=== PATIENT | male | born 1980 | race Caucasian/White ===

== ENCOUNTER 2020-02-19 09:44 | Emergency (ER) | payer OTHER, SELFPAY ==
--- NOTE | 2020-02-19 09:50 | XR_ITS ---
EXAMINATION: XR SHOULDER, RIGHT CLINICAL INFORMATION: Fall. COMPARISON: None TECHNIQUE: AP external rotation, Grashey, scapular Y, and axillary views of the right shoulder. FINDINGS: The bones and soft tissues are normal. No fracture. Glenohumeral and acromioclavicular alignment is anatomic with normal joint space. No abnormal soft tissue calcifications. XR/XR shoulder RT min 2V IMPRESSION: Normal right shoulder.
[2020-02-19 10:41] VITALS: BP 163/95; PULSE 98; RESP 16; TEMP 37.1; O2SAT 98; BMI 31.7
--- NOTE | 2020-02-19 10:55 | CT_ITS ---
EXAMINATION: CT HEAD CT CERVICAL SPINE WITHOUT CONTRAST. CLINICAL INFORMATION: Status post fall with head strike. COMPARISON: None TECHNIQUE: 5 mm thin axial and reformatted 2 mm thin sagittal and coronal images of brain were obtained without contrast. 3 mm thin axial and reformatted 2 mm thin sagittal and coronal images of cervical spine were obtained without contrast. DLP [id number]. FINDINGS: Brain: There is no acute intra-axial, extra-axial bleed, masses or midline shift. There is no acute infarct in evolution. Aguirre to white matter differentiation is maintained. The lateral ventricles are symmetrical in size and configuration without enlargement. The bone windows reveal no calvarial abnormality. Bilateral paranasal sinuses and mastoid air cells are well-aerated. No scalp soft tissue abnormality seen. Cervical spine: There is mild reversal of cervical lordosis. The vertebral heights and alignment is normal. The craniovertebral junction and C1-C2 alignment is normal. No visible acute fracture, dislocation or subluxation. There is mild degenerative spondylosis with loss of disc height at C4-C5 disc level. 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 The prevertebral and paravertebral soft tissues are normal. The lung apices are clear. The thyroid lobes are symmetrical and normal. There are bilateral small shotty neck lymph nodes slightly greater on the right. The largest right neck lymph node measures 1.2 x 1.[address] cm on coronal image CT/CT cervical spine wo con IMPRESSION: No acute intracranial process seen. Age-related cerebral volume loss with chronic small vessel ischemic changes. 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 There are degenerative disc changes at C4-C5 disc level. Bilateral shotty neck lymphadenopathy slightly greater on the right. The largest right neck lymph node measures 1.2 x 1.1 cm.
[2020-02-19 10:57] VITALS: BP 146/102; PULSE 77
--- NOTE | 2020-02-19 11:06 | ED.EXTPRO ---
HPI - Extremity Problem General Chief complaint: Extremity Injury, Upper Stated complaint: fell hit shoulder Time Seen by Provider: 02/19/20 09:48 Source: patient Mode of arrival: ambulatory Limitations: no limitations History of Present Illness HPI Narrative: 39 y/o male with history of polysubstance abuse presenting with right shoulder, neck and head pain after he fell this morning. He states he used cocaine, marijuana and drank alcohol last night. When he got out of bed this morning he was dizzy and he fell against the door in his room. He hit his head but did not lose consciousness. He is not on anticoagulation. He reports not feeling good this morning. No abd pain, N/V. Reports headache on the right side where he hit his head. MD Complaint: extremity pain and joint paint Onset (ago): hour(s) (3) Pain Consistency: constant Location: right and upper extremity Severity scale (1-10): 8 Quality: aching and sharp Radiation: proximal Relieving factors: nothing Exacerbating factors: range of motion and palpation Associated symptoms: other (dizziness) Related Data Previous Rx's Medication Instructions Recorded ibuprofen 600 mg PO Q8H PRN #15 tab 02/19/20 lidocaine [Lidoderm] 1 patch TOPICAL DAILY #15 ea 02/19/20 Allergies Allergy/AdvReac Type Severity Reaction Status Date / Time No Known Allergies Allergy Verified 02/19/20 10:41 Review of Systems Review of Systems: Constitutional: No Fever, No Chills ENT/Mouth: No sore throat, No Rhinorrhea, No Swallowing Difficulty Eyes: No Eye Pain, No Swelling, No Redness Cardiovascular: No Chest Pain, No SOB Respiratory: No Cough, No Sputum, No Wheezing, No dyspnea Gastrointestinal: No Nausea, No Vomiting, No Diarrhea, No abdominal Pain Genitourinary: No Dysuria, No Urinary Frequency, No Hematuria Musculoskeletal: + joint pain, No Myalgias Skin: No Skin Lesions, No rash Neuro: No Weakness, No Numbness, + Dizziness, +Headache Psych: No Anxiety/Panic, No Depression Heme/Lymph: No Bruising, No Lymphadenopathy PMFSH Past Medical History Medical History (Updated 02/19/20 @ 12:18 by DEJON Ca) HTN (hypertension) Social History Social History Advance Directives: No Advance Directives Information Provided: No Physical Exam Vital Signs: Vital Signs: Last Vital Signs Temp 98.8 F 02/19/20 10:41 Pulse 93 02/19/20 11:43 Resp 16 02/19/20 10:41 BP 159/99 H 02/19/20 11:43 Pulse Ox 98 02/19/20 10:41 Body Mass Index 31.7 Appearance: Alert. Oriented X3. No acute distress. Eyes: Pupils equal, round and reactive to light. ENT: Pharynx normal. Neck: Normal inspection. Tenderness along right side with muscle spasm of upper trapezius, C-spine tenderness of entire cervical spine without palpable deformity. CVS: Normal heart rate and rhythm. Pulses normal. Respiratory: No respiratory distress. Breath sounds normal. Abdomen: Soft and nontender. +BS x4 Skin: Skin warm and dry. Normal skin color. Normal skin turgor. No rashes. Extremities: No lower extremity edema. Right shoulder with mild diffuse tenderness, normal passive ROM. Proximal muscle tenderness and spasm Neuro: Oriented X 3. No motor deficit. No sensory deficit. Course Course Course Narrative: 39 y/o with history of ETOH and polysubstance abuse presenting with head, neck and shoulder pain after he was dizzy and fell this morning after a night of partying. Shoulder XR negative. Palpable muscle spasm on exam but given cervical spinal tenderness will get CT scan for further evaluation. Labs and orthostatic VS ordered. Reevaluation(s) Reevaluation #1: Lab workup is unremarkable. Orthostatics negative. CT scan shows no acute injuries. No acute intracranial process seen. Age-related cerebral volume loss with chronic small vessel ischemic changes. 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 There are degenerative disc changes at C4-C5 disc level. Bilateral shotty neck lymphadenopathy slightly greater on the right. The largest right neck lymph node measures 1.2 x 1.1 cm. Patient is stable for discharge with treatment for cervical muscle strain. MDM - Extremity (Nontraumatic) Lab Data Result diagrams: 02/19/20 11:14 02/19/20 11:14 Labs: Lab Results 02/19/20 02/19/20 02/19/20 Range/Units 11:14 11:14 11:14 WBC 6.8 (4.8-10.8) X10*3/uL RBC 4.69 (4.60-5.80) X10*6/uL Hgb 13.6 L (14.0-18.0) g/dl Hct 42.8 (42-52) % MCV 91.3 (80-98) fL MCH 29.0 (27.0-33.0) pg MCHC 31.8 (31.0-36.0) g/dl RDW 13.5 (11.0-16.0) % Plt Count 195 (160-400) X10*3/uL MPV 11.2 (9.4-12.4) fL Immature Gran % (Auto) 0.9 H (0.0-0.4) % Neut % (Auto) 59.8 (45-73) % Lymph % (Auto) 24.4 (20-40) % [place] % (Auto) 10.4 (2-11) % Eos % (Auto) 4.1 H (0-4) % Baso % (Auto) 0.4 (0-2) % Lymph # (Auto) 1.7 (1.2-4.9) X10*3/uL [place] # (Auto) 0.7 (0.1-1.2) X10*3/uL Eos # (Auto) 0.3 (0.0-0.4) X10*3/uL Baso # (Auto) 0.0 (0.0-0.2) X10*3/uL Abs Immat Gran (auto) 0.06 H (0.00-0.03) X10*3/uL Absolute Neuts (auto) 4.1 (2.0-8.3) X10*3/uL Absolute Nucleated RBC 0.000 (0.0-0.012) X10*3/uL Nucleated RBC % (auto) 0.0 (0.0-0.2) /100WBC Sodium 138 (135-145) mmol/L Potassium 4.6 (3.3-5.1) mmol/l Chloride 104 (96-108) mmol/L Carbon Dioxide 27 (22-29) mmol/L Anion Gap 12 (12-20) BUN 15 (9-16) mg/dL Creatinine 0.91 (0.5-1.4) mg/dL Estim Creat Clear Calc 131.8 Estimated GFR > 60 Random Glucose 106 (60-115) mg/dL Calcium 9.2 (8.4-10.2) mg/dL Magnesium 2.4 (1.6-2.6) mg/dL Total Bilirubin 0.2 (0.0-1.0) mg/dL Direct Bilirubin < 0.2 (0.0-0.5) mg/dL AST 20 (5-37) U/L ALT 25 (0-40) U/L Alkaline Phosphatase 77 (39-117) U/L Total Protein 7.2 (6.5-8.0) g/dL Albumin 4.3 (3.5-5.0) g/dL Ethyl Alcohol < 10 mg/dL Discharge Plan Discharge Clinical Impression: Polysubstance abuse Fall Qualifiers: Encounter type: initial encounter Qualified Code(s): W19.XXXA - Unspecified fall, initial encounter Cervical muscle strain Qualifiers: Encounter type: initial encounter Qualified Code(s): S16.1XXA - Strain of muscle, fascia and tendon at neck level, initial encounter Patient Disposition: Home, Self-Care Instructions: Cervical Strain (ED), Lymphadenopathy (ED) Additional Instructions: Your lab workup today was normal. Your CT scans did not show any injuries. Scattered enlarged lymph nodes were seen on the scan and should be followed up by your doctor. Rest and stay hydrated. Take the prescribed medications as needed for pain. Do not use illicit drugs. Do not drink excessive amounts of alcohol, this increases your risk for recurrent falls. Follow up with your doctor this week. Prescriptions: New lidocaine [Lidoderm] 5 % adhesive patch,medicated 1 patch topical DAILY Qty: 15 RF: 0 ibuprofen 600 mg tablet 600 mg PO Q8H PRN (Reason: pain) Qty: 15 RF: 0 Print Language: Faroese
[2020-02-19 11:29] LABS: MANUAL DIFF FLAG NO
[2020-02-19 11:36] LABS: Basophils Percent Auto 0.4 % (0-2); Eosinophils Absolute Auto 0.3 X10*3/uL (0.0-0.4); Eosinophils Percent Auto 4.1 % (0-4); Hematocrit 42.8 % (42-52); Hemoglobin 13.6 g/dl (14.0-18.0); Imm Gran Abs Auto 0.06 X10*3/uL (0.00-0.03); Imm Gran Pct Auto 0.9 % (0.0-0.4); Lymphocytes Absolute Auto 1.7 X10*3/uL (1.2-4.9); Lymphocytes Percent Auto 24.4 % (20-40); Mean Corpuscular HGB Conc 31.8 g/dl (31.0-36.0); Mean Corpuscular Volume 91.3 fL (80-98); Mean Platelet Volume 11.2 fL (9.4-12.4); Monocytes Absolute Auto 0.7 X10*3/uL (0.1-1.2); Monocytes Percent Auto 10.4 % (2-11); Neutrophils Absolute Auto 4.1 X10*3/uL (2.0-8.3); Neutrophils Percent Auto 59.8 % (45-73); Platelet Count 195 X10*3/uL (160-400); Red Blood Count 4.69 X10*6/uL (4.60-5.80); Red Cell Distribution Width 13.5 % (11.0-16.0); White Blood Count 6.8 X10*3/uL (4.8-10.8)
[2020-02-19 11:41] VITALS: BP 143/93; PULSE 80
[2020-02-19 11:43] VITALS: BP 159/99; PULSE 93
[2020-02-19 11:55] LABS: Ethanol < 10 mg/dL
[2020-02-19 11:56] LABS: Alanine Aminotransferase 25 U/L (0-40); Albumin Level 4.3 g/dL (3.5-5.0); Alkaline Phosphatase 77 U/L (39-117); Anion Gap 12 (12-20); Aspartate Amino Transferase 20 U/L (5-37); Bilirubin Direct < 0.2 mg/dL (0.0-0.5); Bilirubin Total 0.2 mg/dL (0.0-1.0); Blood Urea Nitrogen 15 mg/dL (9-16); Calcium 9.2 mg/dL (8.4-10.2); Carbon Dioxide 27 mmol/L (22-29); Chloride 104 mmol/L (96-108); Creatinine Clr Calc Pharmacy 131.8; Estimated Glomerular Filt Rate > 60; Glucose Random 106 mg/dL (60-115); Magnesium 2.4 mg/dL (1.6-2.6); Potassium 4.6 mmol/l (3.3-5.1); Sodium 138 mmol/L (135-145); Total Protein 7.2 g/dL (6.5-8.0)
== END 2020-02-19 12:44 | disposition home or self-care (01) ==
PROVIDERS: Physician Assistant; Emergency Provider Emergency Medicine
DX: F19.10 Other psychoactive substance abuse, uncomplicated (principal); S16.1XXA Strain of muscle, fascia and tendon at neck level, initial encounter; W18.30XA Fall on same level, unspecified, initial encounter; R93.0 Abnormal findings on diagnostic imaging of skull and head, not elsewhere classified; R59.1 Generalized enlarged lymph nodes; F10.10 Alcohol abuse, uncomplicated; Y90.0 Blood alcohol level of less than 20 mg/100 ml; I10 Essential (primary) hypertension; Y93.89 Activity, other specified; Y92.013 Bedroom of single-family (private) house as the place of occurrence of the external cause; Y99.9 Unspecified external cause status
CPT/HCPCS: 36415; 70450; 72125; 73030; 80048; 80076; 80320; 83735; 85025; 99283; 99284

== ENCOUNTER 2021-04-27 06:49 | Emergency (ER) | payer MEDICAID, SELFPAY ==
[2021-04-27 07:00] VITALS: BP 145/91; PULSE 104; RESP 22; TEMP 37.3; O2SAT 98; BMI 33.0
[2021-04-27 07:55] VITALS: BP 132/72; PULSE 93; RESP 18; TEMP 36.4; O2SAT 95
--- NOTE | 2021-04-27 08:03 | ED.ALLEREA ---
HPI - Allergic Reaction General Chief complaint: Allergic Reaction Stated complaint: FACIAL SWELLING QUEST ALLERGIC REACTION Time Seen by Provider: 04/27/21 08:01 History of Present Illness HPI narrative: 41-year-old male presents today with having itchiness over the face, itchiness over the arms itchiness over the neck. Rash that developed over the last 3 weeks. Patient has started a new job about month ago. Now he is outside a lot. He has been using Dial soap. Since rash started patient has been washing more times per day. Using hot water. No other change in his environment. No fever no chills no coughing or congestion or shortness of breath. Patient from home. Related Data Previous Rx's Medication Instructions Recorded ibuprofen 600 mg tablet 600 mg PO Q8H PRN #15 tab 02/19/20 lidocaine 5 % topical patch 1 patch TOPICAL DAILY #15 ea 02/19/20 (Lidoderm) diphenhydramine HCl 25 mg capsule 25 mg PO Q8H 5 Days #15 cap 04/27/21 (Benadryl) famotidine 20 mg tablet (Pepcid) 20 mg PO BID 5 Days #10 tab 04/27/21 prednisone 20 mg tablet 40 mg PO DAILY #10 tab 04/27/21 Allergies Allergy/AdvReac Type Severity Reaction Status Date / Time No Known Allergies Allergy Verified 02/19/20 10:41 Review of Systems Review of Systems: Positive rash to the face to the arm to the neck. There is no rash to legs. Patient wear long pants but wear a T-shirt. All system reviewed otherwise negative Yes all other systems are reviewed and are negative PMFSH Past Medical History Attestation statement: The following information was validated with the patient. Medical History HTN (hypertension) Social History Social History Alcohol intake: current Alcohol intake frequency: 3 or more drinks per day Alcohol type: beer Smoked in Last 30 Days: Yes Use of substances other than those prescribed or required for medical reasons: No Advance Directives: No Advance Directives Information Provided: Yes Physical Exam ED Vital Signs: Vital Signs - 24 hr 04/27/21 07:00 04/27/21 07:55 Temperature 99.1 F 97.5 F Pulse Rate 104 H 93 Respiratory Rate 22 H 18 Blood Pressure 145/91 H 132/72 Pulse Oximetry 98 95 BMI result Body Mass Index 33.0 Appearance: Alert. Oriented X3. No acute distress. Eyes: Pupils equal, round and reactive to light. ENT: Pharynx normal. Neck: Normal inspection. Neck supple. No lymph nodes noted. No crepitus CVS: Normal heart rate and rhythm. Pulses normal. Normal S1 and S2 Respiratory: No respiratory distress. Breath sounds normal. No Wheezing. No rales Abdomen: Soft and nontender. No rigidity. No distention. good BS x4 Skin: Positive dry scaly rash over the face over the arms and legs. Worse over the neck. Blanches. Extremities: No lower extremity edema. Neurovascular intact to all extremities. No Lacerations. No Rash Neuro: Oriented X 3. No motor deficit. No sensory deficit. Moving all extermities. No slurred speech MDM - Allergic Reaction MDM Narrative Medical decision making narrative: Patient started a new job that is outside. Had lots of sun exposure without having sun protection. Been taking frequent showers. Itching scratching interestingly is over areas of sun exposure there is no rash in the legs there is no rash in the abdomen. Likely patient has eczema. Will ask patient to use sunscreen. Will start patient on prednisone given the degree of the problem. Will have patient closely follow-up. Wash once a day. Use Dove soap. In stable condition with discharge Medical Records Attestation: I reviewed the patient's medical records. Lab Data Attestation: I reviewed the patient's lab results. Discharge Plan Discharge Clinical Impression: Eczema Patient Disposition: Home, Self-Care Instructions: Eczema (ED) Prescriptions: New prednisone 20 mg tablet 40 mg PO DAILY Qty: 10 0RF famotidine [Pepcid] 20 mg tablet 20 mg PO BID 5 Days Qty: 10 0RF diphenhydramine HCl [Benadryl] 25 mg capsule 25 mg PO Q8H 5 Days Qty: 15 0RF No Action lidocaine [Lidoderm] 5 % adhesive patch,medicated 1 patch topical DAILY Qty: 15 0RF Rx Instructions: leave on most painful area for up to 12 hrs ibuprofen 600 mg tablet 600 mg PO Q8H PRN (Reason: pain) Qty: 15 0RF Referrals: [facility] [Physician] - 2 days Print Language: Paraguayan
[2021-04-27] MEDS: diphenhydrAMINE HCL 25 MG TABLET 50 MG PO (08:08)
[2021-04-27] MEDS: predniSONE 20 MG TABLET 60 MG PO (08:09)
[2021-04-27] MEDS: Famotidine 20 MG TABLET PO (08:09)
== END 2021-04-27 08:19 | disposition home or self-care (01) ==
PROVIDERS: Emergency Provider Emergency Medicine Emergency Medical Services
DX: L30.9 Dermatitis, unspecified (principal); Z79.899 Other long term (current) drug therapy
CPT/HCPCS: 99284; Q0163

== ENCOUNTER 2021-06-12 03:52 | Emergency (ER) | payer OTHER, SELFPAY ==
[2021-06-12 04:00] VITALS: BP 159/79; PULSE 104; RESP 16; TEMP 37; O2SAT 98; BMI 31.5
--- NOTE | 2021-06-12 04:29 | ED.SKABFB ---
HPI - Skin/Abscess/Foreign Bdy General Chief complaint: Skin/Abscess/Foreign Body Stated complaint: Allergic Reaction Time Seen by Provider: 06/12/21 04:28 Source: patient Mode of arrival: ambulatory Limitations: no limitations History of Present Illness HPI narrative: Patient with severe eczema got worse for last 1 month weeping rash on upper extremities taken 2 courses of prednisone without much relief has not seen a PCP or [facility] yet Related Data Previous Rx's Medication Instructions Recorded ibuprofen 600 mg tablet 600 mg PO Q8H PRN #15 tab 02/19/20 lidocaine 5 % topical patch 1 patch TOPICAL DAILY #15 ea 02/19/20 (Lidoderm) diphenhydramine HCl 25 mg capsule 25 mg PO Q8H 5 Days #15 cap 04/27/21 (Benadryl) famotidine 20 mg tablet (Pepcid) 20 mg PO BID 5 Days #10 tab 04/27/21 prednisone 20 mg tablet 40 mg PO DAILY #10 tab 04/27/21 cyclosporine 100 mg capsule 200 mg PO DAILY #60 cap 06/12/21 dexamethasone 4 mg tablet 4 mg PO BID #30 tab 06/12/21 (Decadron) hydroxyzine HCl 50 mg tablet 50 mg PO Q6-8H PRN #60 tab 06/12/21 Allergies Allergy/AdvReac Type Severity Reaction Status Date / Time No Known Allergies Allergy Verified 06/12/21 04:03 Review of Systems Review of Systems: Yes all other systems are reviewed and are negative [facility] Past Medical History Medical History HTN (hypertension) Social History Social History Alcohol intake: current Alcohol intake frequency: 3 or more drinks per day Alcohol type: beer Advance Directives: No Physical Exam Vital Signs: Vital Signs: Last Vital Signs Temp 98.6 F 06/12/21 04:00 Pulse 104 H 06/12/21 04:00 Resp 16 06/12/21 04:00 BP 159/79 H 06/12/21 04:00 Pulse Ox 98 06/12/21 04:00 BMI result Body Mass Index 31.5 Appearance: Alert. Oriented X3. No acute distress. ENT: Pharynx normal. Oral Mucosa moist Neck: Normal inspection. Neck supple. CVS: Normal heart rate and rhythm. Pulses normal. Respiratory: No respiratory distress. Equal air entry bilateral, no wheezing/rales/rhonchi Abdomen: Soft and nontender. Skin: Weeping eczematous rash bilateral on upper extremities and on the trunk Extremities: No lower extremity edema. No calf tenderness Neuro: Oriented X 3. MDM - Skin/Abscess/Foreign Bdy MDM Narrative Medical decision making narrative: Patient has severe topic eczema is already taken 2 courses of prednisone will give him Decadron this time along with cyclosporin and Atarax advised to follow up with [facility] for further management include UVA treatment and monoclonal antibody treatment (Dupixent) which may be needed for this kind of severe eczema Discharge Plan Discharge Clinical Impression: Eczema Patient Disposition: Home, Self-Care Instructions: Dermatitis (ED) Additional Instructions: Take Decadron and cyclosporin tab as prescribed You need to follow-up with [facility] financial services for further management including UVA treatment and immunotherapy Prescriptions: New cyclosporine 100 mg capsule 200 mg PO DAILY Qty: 60 0RF dexamethasone [Decadron] 4 mg tablet 4 mg PO BID Qty: 30 0RF hydroxyzine HCl 50 mg tablet 50 mg PO Q6-8H PRN (Reason: itching) Qty: 60 0RF No Action lidocaine [Lidoderm] 5 % adhesive patch,medicated 1 patch topical DAILY Qty: 15 0RF Rx Instructions: leave on most painful area for up to 12 hrs ibuprofen 600 mg tablet 600 mg PO Q8H PRN (Reason: pain) Qty: 15 0RF prednisone 20 mg tablet 40 mg PO DAILY Qty: 10 0RF famotidine [Pepcid] 20 mg tablet 20 mg PO BID 5 Days Qty: 10 0RF diphenhydramine HCl [Benadryl] 25 mg capsule 25 mg PO Q8H 5 Days Qty: 15 0RF Referrals: Amanuel Last MD [Physician] - 1 week
[2021-06-12] MEDS: dexAMETHasone 2 MG TABLET 10 MG PO (05:14)
[2021-06-12] MEDS: hydrOXYzine HCL 50 MG TABLET PO (05:15)
== END 2021-06-12 05:30 | disposition home or self-care (01) ==
PROVIDERS: Emergency Provider Internal Medicine
DX: L23.9 Allergic contact dermatitis, unspecified cause (principal); Z79.899 Other long term (current) drug therapy
CPT/HCPCS: 99283; 99284; J8540